=== PATIENT | male | born 1960 | race Two or more races ===

== ENCOUNTER 2023-05-28 10:31 | Outpatient (CLI) | payer OTHER | END 2023-05-28 10:35 | disposition home or self-care (01) | LOC: EKG 10:31 | PROVIDERS: ATTEND Surgery | DX: Z01.810 Encounter for preprocedural cardiovascular examination (principal); C20 Malignant neoplasm of rectum; K62.5 Hemorrhage of anus and rectum; K56.609 Unspecified intestinal obstruction, unspecified as to partial versus complete obstruction; R59.0 Localized enlarged lymph nodes; C78.7 Secondary malignant neoplasm of liver and intrahepatic bile duct ==

== ENCOUNTER 2023-05-28 11:45 | Inpatient (IN) | payer OTHER ==
[~2023-05-28] VITALS: Ht 170.2 cm; Wt 68.0 kg
[2023-06-12 06:56] LABS: HEMATOCRIT 39.5 % (39.0-48.0); MEAN CELL VOLUME 90.2 fL (80.0-100.00); MEAN CORPUSCULAR HEMOGLOBIN 29.8 pg (27.00-32.0); PLATELET COUNT 170 K/uL (150-450); RED BLOOD COUNT 4.38 M/uL (4.00-6.00); RED CELL DISTRIBUTION WIDTH 13.4 % (11.5-14.5)
[2023-06-12 08:10] LABS: ALBUMIN 2.9 gm/dL (3.4-5.0); CALCIUM 8.6 mg/dL (8.5-10.1); CREATININE SERUM 1.06 mg/dL (0.70-1.30); GFR 71.26; MAGNESIUM 2.4 mg/dL (1.8-2.4); PHOSPHOROUS 2.5 mg/dL (2.5-4.9); POTASSIUM 4.64 mEq/L (3.5-5.1)
[2023-06-13 07:32] LABS: HEMATOCRIT 37.6 % (39.0-48.0); HEMOGLOBIN 12.8 g/dL (13-16.00); MEAN CELL VOLUME 89.1 fL (80.0-100.00); MEAN CORPUSCULAR HEMOGLOBIN 30.4 pg (27.00-32.0); MEAN CORPUSCULAR HGB CONC 34.1 g/dl (32.0-36.0); PLATELET COUNT 163 K/uL (150-450); RED BLOOD COUNT 4.22 M/uL (4.00-6.00); RED CELL DISTRIBUTION WIDTH 13.7 % (11.5-14.5)
[2023-06-13 07:48] LABS: ALBUMIN 2.9 gm/dL (3.4-5.0); CALCIUM 8.4 mg/dL (8.5-10.1); CREATININE SERUM 0.96 mg/dL (0.70-1.30); GFR 79.9; MAGNESIUM 2.1 mg/dL (1.8-2.4); PHOSPHOROUS 2.3 mg/dL (2.5-4.9); POTASSIUM 4.01 mEq/L (3.5-5.1)
[2023-06-15] MEDS ORDERED: NEURONTIN300 MG PO (14:19)
[2023-06-15] MEDS ORDERED: ACETAMINOPHEN500 M2 PO (14:19)
== END 2023-06-15 17:29 | disposition home or self-care (01) | DRG 330 ==
LOC: EDUNIT# 11:45 → SURG 06-04 11:45 → SURH 06-11 05:11 → O/R 06-11 05:11 → SURH 06-11 11:55
PROVIDERS: Surgery; ADMIT Surgery; ATTEND Surgery
PROC: 0DBP4ZZ Excision of Rectum, Percutaneous Endoscopic Approach (ICD-10-PCS; 2023-06-11)
PROC: 07BC4ZX Excision of Pelvis Lymphatic, Percutaneous Endoscopic Approach, Diagnostic (ICD-10-PCS; 2023-06-11)
PROC: 8E0W4CZ Robotic Assisted Procedure of Trunk Region, Percutaneous Endoscopic Approach (ICD-10-PCS; 2023-06-11)
PROC: 0D1B4Z4 Bypass Ileum to Cutaneous, Percutaneous Endoscopic Approach (ICD-10-PCS; principal; 2023-06-11 09:30)
DX: C20 Malignant neoplasm of rectum (principal); C78.7 Secondary malignant neoplasm of liver and intrahepatic bile duct; K56.609 Unspecified intestinal obstruction, unspecified as to partial versus complete obstruction; K62.5 Hemorrhage of anus and rectum; R59.0 Localized enlarged lymph nodes
CPT/HCPCS: 44207; 44187; 38571; 38570; 44213; S2900

== ENCOUNTER 2024-05-19 12:00 | Inpatient (IN) | payer OTHER ==
[~2024-05-19] VITALS: Ht 170.2 cm; Wt 65.8 kg
[~2024-05-19 12:00] MED LIST: ACETAMINOPHEN500 M2 PO; NEURONTIN300 MG PO
[2024-05-23 14:28] VITALS: BP 149/84
[2024-05-23] MEDS ORDERED: VYTORIN 10-101 EACH PO (15:30)
[2024-05-25] MEDS ORDERED: CEFTRIAXONE SODIUM 2,000 MG VIAL IV SCH (11:45)
[2024-05-25] MEDS ORDERED: BUPIVACAINE HCL 30 ML VIAL IJ SCH (11:45)
[2024-05-25] MEDS ORDERED: LIDOCAINE HCL 1%/EPINEPHRINE 20ML VIAL IJ SCH (11:45)
[2024-05-25] MEDS ORDERED: METRONIDAZOLE/SODIUM CHLORIDE 500 MG/100 ML PIGGYBACK IV SCH (11:45)
[2024-05-25] MEDS ORDERED: DEXTROSE 50 % IN WATER 0.5 G/ML DISP.SYRIN IV PRN (12:45)
[2024-05-25] MEDS ORDERED: MORPHINE SULFATE 4 MG/ML VIAL IV ONE (12:45)
[2024-05-25] MEDS ORDERED: RINGERS SOLUTION,LACTATED 1,000 ML IV SCH (12:45)
[2024-05-25] MEDS ORDERED: ONDANSETRON HCL 2 MG/ML VIAL IV PRN (12:45)
[2024-05-25] MEDS ORDERED: MORPHINE SULFATE 4 MG/ML CARTRIDGE IV PRN (12:45)
[2024-05-25] MEDS ORDERED: OxyCODONE HCL 5 MG TABLET (ROXICODONE) PO PRN (12:45)
[2024-05-25] MEDS ORDERED: HYOSCYAMINE SULFATE 0.125 MG TAB.SUBL SL SCH (13:00)
[2024-05-25 14:30] LABS: HEMATOCRIT 38.8 % (39.0-48.0); HEMOGLOBIN 13.2 g/dL (13-16.00); MEAN CELL VOLUME 99.7 fL (80.0-100.00); MEAN CORPUSCULAR HEMOGLOBIN 33.8 pg (27.00-32.0); MEAN CORPUSCULAR HGB CONC 33.9 g/dl (32.0-36.0); PLATELET COUNT 165 K/uL (150-450)
[2024-05-25 14:31] LABS: RED CELL DISTRIBUTION WIDTH 17.9 % (11.5-14.5)
[2024-05-25 14:33] VITALS: BP 112/66; O2SAT 96
[2024-05-25 15:38] LABS: ALBUMIN 3.7 gm/dL (3.4-5.0); CALCIUM 8.8 mg/dL (8.5-10.1); CREATININE SERUM 0.97 mg/dL (0.70-1.30); GFR 78.68; PHOSPHOROUS 2.9 mg/dL (2.5-4.9); POTASSIUM 4.11 mEq/L (3.5-5.1)
[2024-05-25] MEDS ORDERED: GABAPENTIN 300 MG CAPSULE PO SCH (17:00)
[2024-05-25 17:10] VITALS: BP 116/63; O2SAT 99
[2024-05-25] MEDS ORDERED: ACETAMINOPHEN 500 MG GEL..CAP PO SCH (18:00)
[2024-05-25] MEDS ORDERED: FAMOTIDINE/PF 20 MG/2 ML VIAL IV PUSH SCH (21:00)
[2024-05-25] MEDS ORDERED: CELECOXIB 200 MG CAPSULE PO SCH (21:00)
[2024-05-25 23:40] VITALS: BP 100/67; O2SAT 100
[2024-05-26 08:02] LABS: HEMATOCRIT 36.5 % (39.0-48.0); HEMOGLOBIN 12.4 g/dL (13-16.00); MEAN CELL VOLUME 98.5 fL (80.0-100.00); MEAN CORPUSCULAR HEMOGLOBIN 33.4 pg (27.00-32.0); PLATELET COUNT 132 K/uL (150-450); RED CELL DISTRIBUTION WIDTH 17.9 % (11.5-14.5)
[2024-05-26 08:31] VITALS: BP 118/67; O2SAT 98
[2024-05-26] MEDS ORDERED: LACTOBACILLUS ACIDOPHILUS 1 CAP CAP PO SCH (09:00)
[2024-05-26 09:09] LABS: CALCIUM 8.6 mg/dL (8.5-10.1); CREATININE SERUM 1.02 mg/dL (0.70-1.30); GFR 74.25; PHOSPHOROUS 2.6 mg/dL (2.5-4.9); POTASSIUM 3.93 mEq/L (3.5-5.1)
[2024-05-26 16:24] VITALS: BP 116/73; O2SAT 98
[2024-05-26] MEDS ORDERED: ENOXAPARIN SODIUM 40 MG/0.4 ML SYRINGE SUBCUTANEO SCH (17:00)
[2024-05-27 00:38] VITALS: BP 135/75; O2SAT 97
[2024-05-27 09:00] VITALS: BP 131/73; O2SAT 99
[2024-05-27] MEDS ORDERED: ENOXAPARIN SODIUM 40 MG/0.4 ML SYRINGE SUBCUTANEO SCH (09:00)
[2024-05-27 16:00] VITALS: BP 122/69; O2SAT 97
[2024-05-28 00:12] VITALS: BP 120/64; O2SAT 100
[2024-05-28 10:01] VITALS: BP 130/73; O2SAT 98
[2024-05-28] MEDS ORDERED: INTESTINEX680 M1 PO (11:01)
[2024-05-28] MEDS ORDERED: PEPCID AC20 MG PO (11:01)
[2024-05-28] MEDS ORDERED: TRAM1TAB98 PO (11:01)
== END 2024-05-28 12:17 | disposition home or self-care (01) | DRG 330 ==
LOC: O/R 05-25 06:45 → SURG 05-25 06:45 → SURH 05-25 10:00 → SURG 05-25 13:12
PROVIDERS: ADMIT Surgery; ATTEND Surgery
PROC: 0DBB4ZZ Excision of Ileum, Percutaneous Endoscopic Approach (ICD-10-PCS; 2024-05-25)
PROC: 0DQE4ZZ Repair Large Intestine, Percutaneous Endoscopic Approach (ICD-10-PCS; principal; 2024-05-25 10:00)
DX: C20 Malignant neoplasm of rectum (principal); C78.7 Secondary malignant neoplasm of liver and intrahepatic bile duct; K66.0 Peritoneal adhesions (postprocedural) (postinfection)